=== PATIENT | female | born 1985 | race Caucasian/White ===

== ENCOUNTER → 2018-01-16 09:36 | Outpatient (CLI) | payer SELFPAY ==
[2018-01-16 12:15] LABS: Chlamydia Trachomatis by PCR Negative (Negative); Neisserai gonorrhoeae by PCR Negative (Negative); Probe Check PASS; Sample Adequacy Control PASS; Specimen Processing Control PASS
[2018-01-18 18:41] LABS: HPV Reflexed? NOT INDICATED
== END ==
LOC: WOBLAB 09:40 → LABSPEC 09:40
PROVIDERS: Visit Provider Obstetrics & Gynecology
DX: Z12.4 Encounter for screening for malignant neoplasm of cervix (principal); Z11.3 Encounter for screening for infections with a predominantly sexual mode of transmission
CPT/HCPCS: 87491; 87591; 88175; G0145

== ENCOUNTER 2018-07-01 10:00 | Inpatient (IN) | payer SELFPAY ==
[2018-07-01] VITALS (18 sets, daily range): BP systolic 88–113; BP diastolic 37–69; PULSE 70–96; RESP 14–18; TEMP 36.2–36.6; O2SAT 94–100; BMI 32.1
[2018-07-01] MEDS: Lactated Ringers 1,000 ML 999 ML IV (10:15)
[2018-07-01 10:29] LABS: Absolute Lymphocyte Count 1.43 X10^3/ul (0.83-4.51); Absolute Neutrophil Count 5.7 X10^3/uL (2.0-7.7); Basophil# 0.02 X10^3/uL; Basophil% 0.3 % (0-1); Eosinophil# 0.07 X10^3/uL; Eosinophils% 0.9 % (0-5); Hematocrit 34.5 % (37-47); Hemoglobin 11.5 g/dl (12.0-15.0); Lymphocyte # 1.43 X10^3/ul (4.0); Lymphocyte % 18.5 % (19-41); Mean Corp Hgb Conc 33.3 g/gl (32-36); Mean Corpuscular Hgb 31.4 pg (27.0-32.0); Mean Corpuscular Volume 94.3 fL (81-99); Mean Platelet Vol. 9.3 fl (6.2-12.0); Monocyte# 0.51 X10^3/uL; Monocyte% 6.6 % (0-10); Neutrophil # 5.65 X10^3/uL (2.7-7.7); Neutrophil % 73.2 % (47-70); POSITIVE COUNT NO; POSITIVE DIFFERENTIAL NO; POSITIVE MORPHOLOGY NO; Platelet Count 167 K/mm3 (150-450); RBC Distribution Width CV 13.8 % (11.6-14.6); RBC Distribution Width SD 47.1 fl (35.1-43.9); Red Blood Count 3.66 M/mm3 (4.2-5.4); White Blood Count 7.7 K/mm3 (4.4-11.0)
[2018-07-01] MEDS: Lactated Ringers 1,000 ML 150 ML IV (11:30)
[2018-07-01] MEDS: Cefazolin 2 GM in 0.9% Normal Saline 100 ML IV (11:49)
[2018-07-01] MEDS: Sodium Citrate/Citric Acid 30 ML UDC PO (11:50)
--- NOTE | 2018-07-01 11:55 | OP.PCM_ITS ---
Delivery Classification: Scheduled Final MIGUEL: 07/07/18 Final MIGUEL Source: US <20 weeks Gestational age: 39 Weeks and 1 Days Indications for : Repeat Elective - Desires Permanent Sterilization Description of Procedure: Surgeon: Severiano Waite MD, FACOG Hydrogenation Operator: NELDA Vanegas Anesthesia: India Stone MD Anesthesia: Spinal with Duramorph Pre-op Diagnosis: Prior Section, Desires Permanent Sterilization Post-Op Diagnosis: Prior Section, Desires Permanent Sterilization Procedure: Repeat Low Transverse Cervical Caesarean Section And Bilateral Tubal Occlusion with Filshie Clips Findings: Viable female with Apgars of 9/9 in occiput anterior presentation with clear amniotic fluid and normal three-vessel placenta. Indication: This is a 33-year-old who presents for her third repeat at 39+ weeks gestation. care has otherwise been uneventful. The patient has been counseled regarding the risk and indications of this procedure including the possibility of bleeding infection and injury to surrounding structures such as bowel bladder. She also desires permanent sterilization and has considered this form of control for quite some time. She has been counseled regarding the permanent nature of this procedure, the failure rate of 1-2%, and the availability of other nonpermanent control options. All questions were answered. Procedure: Patient was taken to the operating room where after spinal anesthesia was placed, the patient was prepped and draped in usual sterile fashion and a Best catheter was placed. The abdomen was entered through the patient's prior Pfannenstiel incision and peritoneum was entered bluntly. After developing a bladder flap on the lower uterine segment a low transverse incision was made on the uterus and head was easily delivered onto the operative field the nose mouth and oropharynx were bulb suctioned. Subsequently a viable female was born with Apgars of 9/9. The infant was noted to cry move all extremities vigorously on the operative field. The umbilical cord was doubly clamped and ligated and infant handed to the nursery personnel who were present for the delivery. Placenta was delivered and noted to be 3 vessels and normal. Uterus was exteriorized and remaining placental tissue was removed. The uterus was then closed in 2 layers first with running locked 0 Vicryl suture followed by a second imbricating layer with 0 Vicryl suture. 0 Vicryl suture was then used in a horizontal mattress interrupted fashion to affect final hemostasis of the uterine incision line. Normal fallopian tubes and ovaries were visualized and Filshie clips were placed in each fallopian tube approximately 1-2 cm from the fundus. The uterus was returned to the pelvis. Hemostasis was noted and rectus abdominis muscles were reapproximated in the midline with interrupted Number 0 Vicryl suture in a horizontal mattress fashion. Fascia was closed with running Number 1 PDS Strata fix suture. Subcutaneous tissue was irrigated with copious amouts of saline solution and then closed with running 3-0 Vicryl suture. Skin was closed with 4-0 monocryl suture in a running subcuticular fashion. Steri strips, telfa, and tape were placed across the incision. The patient tolerated the procedure well and was taken to the recovery room in satisfactory condition. Sponge, needle, and instrument counts were all reportedly correct. EBL was less than 500 cc. Ancef 2 gms IV was given prior to the procedure. Spicemen to Pathology: None Amniotic Fluid Description: Clear Placenta Disposition: [facility] Drain: Best to straight drain Fluids Replaced: Crystalloid Cord Entanglement: None Cord Vessel Description: 3 Vessels Esitmated Blood Loss (ml): 500 cc Gender: Female (1 minute): 9 (5 minute): 9 Pre-op Antibiotic Given: Ancef 2 grams IV x1 Pt instructed on risks of surgery: Bleeding, Infection, Permanency, Failure Rate of 1 to 2%, Injury to surrounding structure(s) including bowel and bladder Complications: None - Admit VTE Documentation VTE Present on Admission: Yes VTE Mechan Device Prophylaxis: SCD's
--- NOTE | 2018-07-01 11:56 | DCINST_ITS ---
Discharge Diet: No Restrictions Discharge Activity: May not drive while taking narcotic pain medications., May Shower, May Take a Tub Bath May resume sexual activity in: 4-6 weeks Lifting Restrictions: 20 pounds Additional Activity Instructions:: Nothing in the vagina for 4-6 weeks. You may return to work/school in 6 weeks. Call your doctor if your incision/area has: Continuous Slow Oozing, Sudden Increased Bleeding, Increased Pain/ Swelling, Increased Redness, Foul Smelling Discharge Call your doctor if you observe: Fever of 101 or Higher, Inability to urinate, Inability to have a bowel movement, Using more than one pad per hour Additional Instructions: If you experience any of the following, contact your healthcare provider. * Bleeding that soaks a pad every hour for 2 hours * Unrelieved incision or abdominal pain * Swelling, redness, discharge or bleeding from your incision or episiotomy site * Your incision begins to separate * Problems urinating (including inability to urinate or burning while urinating). * Visual changes * Severe headache * Flu-like symptoms * Pain or redness in one of both of your breasts * Pain, warmth, tenderness or swelling in your legs, especially the calf area * Frequent nausea and vomiting * Symptoms of depression or anxiety If you experience any of the following, call 911 or go to the nearest Emergency Room. * Chest pain * Problems breathing * Seizure activity * Partial or complete paralysis of a body part, slurred speech, weakness or drooping of the face, or a sudden inability to walk or hold your balance Allergies/Adverse Reactions: Allergies No Known Allergies Allergy (Verified 07/01/18 11:46) Medications to take at Discharge Docusate Sodium [Colace] 100 mg PO BID PRN PRN #60 cap 07/01/18 RX: Oxycodone [Oxyir] 5 mg PO Q6H PRN PRN 7 Days #20 tab 07/01/18 The following prescriptions were given: RX: Oxycodone [Oxyir] 5 mg PO Q6H PRN PRN 7 Days #20 tab PRN Reason: Severe Pain (-01/30) Docusate Sodium [Colace] 100 mg PO BID PRN PRN #60 cap PRN Reason: Constipation Follow-Up: Call to make an appointment with your doctor for an incision check in 1-2 weeks. You will also need a 6 week post- follow up appointment. Test results from this visit will be discussed in further detail at your follow- up appointment, if applicable. Please Follow Up With: Severiano Waite MD - [phone] When: Call to make an appointment for an incision check in 2 weeks. Primary Care Physician: Severiano Tillman [Primary Care Provider] -
[2018-07-01] MEDS: Oxytocin 30 units/NS 500 ml 30 UNITS/500 ML IV.SOLN 167 UNITS IV (12:12)
[2018-07-01] MEDS: Methylergonovine 0.2 MG/ML Ampul IM (12:15)
[2018-07-01] MEDS: Lactated Ringers 1,000 ML 100 ML IV ×2 (13:00→20:05)
[2018-07-01] MEDS: Ondansetron 4 MG/2 ML Vial IV (17:29)
[2018-07-01] MEDS: Ketorolac 30 MG/ML Syringe IV (18:26)
[2018-07-01] MEDS: Cefazolin 1 GM/50 ML BAG IV (20:02)
[2018-07-01] MEDS: proMETHazine 25 MG/ML Syringe 12.5 MG IV (20:30)
[2018-07-01] MEDS: 0.9% Saline Lock 10 ML Syringe IV (20:35)
[2018-07-02] VITALS (11 sets, daily range): BP systolic 83–106; BP diastolic 40–58; PULSE 68–89; RESP 14–16; TEMP 36.3–36.7; O2SAT 95–100
[2018-07-02] MEDS: Ketorolac 30 MG/ML Syringe IV ×4 (00:13→18:18)
[2018-07-02] MEDS: 0.9% Saline Lock 10 ML Syringe IV (00:13)
[2018-07-02] MEDS: Cefazolin 1 GM/50 ML BAG IV (04:27)
[2018-07-02 06:24] LABS: Hematocrit 28.5 % (37-47); Hemoglobin 9.2 g/dl (12.0-15.0); Mean Corp Hgb Conc 32.3 g/gl (32-36); Mean Corpuscular Hgb 31.2 pg (27.0-32.0); Mean Corpuscular Volume 96.6 fL (81-99); Mean Platelet Vol. 9.1 fl (6.2-12.0); Platelet Count 164 K/mm3 (150-450); RBC Distribution Width CV 13.2 % (11.6-14.6); RBC Distribution Width SD 43.8 fl (35.1-43.9); Red Blood Count 2.95 M/mm3 (4.2-5.4); White Blood Count 8.8 K/mm3 (4.4-11.0)
--- NOTE | 2018-07-02 06:25 | NURSING ---
[id number] Lab called because CBC was entered under ticket collector or usher India Berry instead of India Azar. Lab informed of error.
[2018-07-02] MEDS: Lactated Ringers 1,000 ML 100 ML IV (06:31)
[2018-07-02 06:46] LABS: Scan Indicated on CBC? Y/N NO
--- NOTE | 2018-07-02 08:54 | PN.OBGYN_ITS ---
Subjective: Patient without complaints. Tolerating diet well. Positive flatus. Minimal vaginal bleeding. Breast-feeding going well. - Physical Exam Vital Signs Temp Pulse Resp BP Pulse Ox 97.8 F 83 16 83/43 L 97 07/02/18 04:28 07/02/18 07:55 07/02/18 07:55 07/02/18 04:28 07/02/18 07:55 Oxygen Delivery Method Room Air Weight: 176 lb Body Mass Index (BMI) 32.1 Intake and Output for Last 24 Hours 06/30/18 07/01/18 07/02/18 23:59 23:59 23:59 Intake Total 5718 / 5718 808 / 808 Output Total 1925 / 1925 900 / 900 Balance 3793 / 3793 -92 / -92 Laboratory Tests Past 24 Hrs 07/01/18 07/01/18 07/02/18 10:15 10:15 06:14 WBC 7.7 8.8 RBC 3.66 L 2.95 L Hgb 11.5 L 9.2 L Hct 34.5 L 28.5 L MCV 94.3 96.6 MCH 31.4 31.2 MCHC 33.3 32.3 RDW 13.8 13.2 RDW Differential 47.1 H 43.8 Plt Count 167 164 MPV 9.3 9.1 Immature Gran % (Auto) 0.500 Neut % (Auto) 73.2 H Lymph % (Auto) 18.5 L [place] % (Auto) 6.6 Eos % (Auto) 0.9 Baso % (Auto) 0.3 Absolute Neuts (auto) 5.7 Absolute Lymphs (auto) 1.43 Total Counted Not Reportable Blood Type B POSITIVE Antibody Screen NEGATIVE Wound is clean, dry, intact. Good urine output. Hemoglobin okay. Medical Necessity - Tobacco Use Smoking Status: Never smoker Assessment/Plan Doing well postoperative day #1 status post repeat and tubal. Continuing present care.
[2018-07-02] MEDS: Acetaminophen 500 MG Tablet 1000 MG PO (16:38)
[2018-07-03] MEDS: Ketorolac 30 MG/ML Syringe IV ×3 (00:38→10:56)
[2018-07-03] MEDS: 0.9% Saline Lock 10 ML Syringe IV ×3 (00:38→10:57)
[2018-07-03 01:56] VITALS: BP 110/47; PULSE 77; RESP 14; TEMP 37.2; O2SAT 96
[2018-07-03] MEDS: Acetaminophen 500 MG Tablet 1000 MG PO (09:12)
[2018-07-03] MEDS: Senna/Docusate Sodium 1 Tablet PO (09:12)
--- NOTE | 2018-07-03 09:16 | PCM.PN.OB ---
Subjective: Patient without complaints. Tolerating diet well. Minimal vaginal bleeding. Ready to go home today. - Physical Exam Vital Signs Temp Pulse Resp BP Pulse Ox 99.0 F 77 14 110/47 L 96 07/03/18 01:56 07/03/18 01:56 07/03/18 01:56 07/03/18 01:56 07/03/18 01:56 Oxygen Delivery Method Room Air Weight: 176 lb Body Mass Index (BMI) 32.1 Intake and Output for Last 24 Hours 07/01/18 07/02/18 07/03/18 23:59 23:59 23:59 Intake Total 5718 / 5718 808 / 808 Output Total 1925 / 1925 900 / 900 Balance 3793 / 3793 -92 / -92 Wound is clean, dry, intact. Good urine output. Medical Necessity - Tobacco Use Smoking Status: Never smoker Assessment/Plan Doing well postoperative day #2 status post repeat and tubal. Will discharge to home with routine instructions.
[2018-07-03 09:30] VITALS: BP 105/56; PULSE 65; RESP 16; TEMP 36.7; O2SAT 98
[2018-07-03 11:41] VITALS: BP 105/56; PULSE 65; RESP 16; TEMP 36.7; O2SAT 98
--- NOTE | 2018-07-03 11:45 | NURSING ---
Steri strips fell off and new steri strips applied , Incision clean and dry. Incision care reviewed with family.
--- NOTE | 2018-07-07 13:53 | NURSING ---
Talked with Beba, she is odilon, she states she was in ER yesterday and was having heavy bleeding and a D&C. Baby did not eat last night and has not pooped for 4 days. Encouraged Mother to feed and then pump and give baby extra 1 oz after feeding and if unable to pump then give in formula whatever she was unable to pump.Mother has to borrow her sister's pump because she does not have one. Baby has latched this morning and nursed 15 min each side. Called edson back and she had then been able to borrow a pump from her sister and she did pump 3 oz and gave baby pumped breast milk. Mother states has not been to baby doctor appt yet she stated they said she did not have to come until 3 weeks but I did tell her to call in am tomorrow and get baby in to get weight check. Also to tell baby doctor there has not yet been a stool if no stool by am. Also instructed mother to let Dr Waite's office know she had been to ER for bleeding and had D& C. Offered visit and encouraged to see even if it was closer to them. The live in [place] and she might be willing to see in [place] but did encourage her to see someone.
== END 2018-07-03 12:00 | disposition home or self-care (01) | DRG 785 ==
PROVIDERS: Admitting Provider Obstetrics & Gynecology; Family Provider Family Medicine; PCP Family Medicine; Referring Provider Obstetrics & Gynecology; Visit Provider Obstetrics & Gynecology
PROC: 10D00Z1 Extraction of Products of Conception, Low, Open Approach (ICD-10-PCS; CPT 59514; principal; 2018-07-01 11:45)
DX: O34.211 Maternal care for low transverse scar from previous cesarean delivery (principal); Z3A.39 39 weeks gestation of pregnancy; Z37.0 Single live birth; Z30.2 Encounter for sterilization
CPT/HCPCS: 85025; 85027; 86850; 86900; 99218; J7120; A4216; G0378; J2405